=== PATIENT | male | born 1985 | race Caucasian/White ===

== ENCOUNTER 2023-12-15 12:57 | Outpatient (CLI) | payer BC ==
[~2023-12-15 12:57] MED LIST: Iopamidol 370 76% 100 ML VIAL ONE
== END 2023-12-15 12:58 | disposition home or self-care (01) ==
LOC: BICCT 12:57
PROVIDERS: ATTEND Otolaryngology
DX: R22.1 Localized swelling, mass and lump, neck (principal)
CPT/HCPCS: 70491; Q9967

== ENCOUNTER → 2024-02-04 | Day surgery (SDC) | payer BC ==
[~2024-02-04] MED LIST changes: -Iopamidol 370 76% 100 ML VIAL ONE; +Lidocaine 1% w/Epinephrine 1:100K 20 ML VIAL ONE; +Sodium Bicarbonate 2.5 MEQ/5 ML SDV ONE
== END ==
LOC: ULT 12:38
PROVIDERS: ATTEND Otolaryngology
PROC: 0JJS3ZZ Inspection of Head and Neck Subcutaneous Tissue and Fascia, Percutaneous Approach (ICD-10-PCS; principal; 2024-02-04)
DX: R22.1 Localized swelling, mass and lump, neck (principal)
CPT/HCPCS: 10005; 88173; 88184; 88305; 88333